=== PATIENT | male | born 1965 | race Two or more races ===

== ENCOUNTER 2019-11-03 18:29 | Emergency (ER) | payer MEDICAID, OTHER ==
[~2019-11-03] VITALS: Ht 170.2 cm; Wt 83.5 kg
[2019-11-03 19:04] VITALS: BP 140/79
== END 2019-11-03 20:53 | disposition home or self-care (01) ==
LOC: ER 18:29
DX: E11.9 Type 2 diabetes mellitus without complications (principal); E78.00 Pure hypercholesterolemia, unspecified; E78.5 Hyperlipidemia, unspecified; Z76.0 Encounter for issue of repeat prescription

== ENCOUNTER → 2019-11-25 | Emergency (ER) | payer OTHER ==
[~2019-11-25] VITALS: Ht 167.6 cm; Wt 83.5 kg
[2019-11-25 22:57] VITALS: BP 128/84
== END | disposition home or self-care (01) ==
LOC: ER 22:32
DX: R51 Headache (principal); E11.9 Type 2 diabetes mellitus without complications; E78.5 Hyperlipidemia, unspecified; Z59.0 Homelessness; Y08.89XA Assault by other specified means, initial encounter; Y93.84 Activity, sleeping; Y92.89 Other specified places as the place of occurrence of the external cause; Y99.8 Other external cause status
CPT/HCPCS: 70450

== ENCOUNTER → 2019-12-11 | Emergency (ER) | payer OTHER ==
[~2019-12-11] VITALS: Ht 167.6 cm; Wt 83.5 kg
[2019-12-11 13:26] LABS: Basophils # (auto) 0.1 10 ^3/uL (0-0.2); Eosinophils # (auto) 0.2 10 ^3/uL (0-0.8); Eosinophils % (auto) 2.8 % (0.0-7.0); Hematocrit 45.3 % (41.0-53.0); Hemoglobin 15.8 g/dL (13.5-17.5); Lymphocytes # (auto) 1.7 10 ^3/uL (0.4-5.4); Lymphocytes % (auto) 25.4 % (10.0-50.0); Mean Corpuscular Hemoglobin 31.1 pg (28.0-32.0); Mean Corpuscular Hgb Conc. 34.8 g/dL (32.0-36.0); Mean Corpuscular Volume 89.2 fL (80.0-100.0); Monocytes # (auto) 0.4 10 ^3/uL (0-1.3); Monocytes % (auto) 6.6 % (0.0-12.0); Neutrophils # (auto) 4.3 10 ^3/uL (1.6-8.6); Neutrophils % (auto) 64.2 % (37.0-80.0); Nucleated Red Blood Cells % 0.1 %; Platelet Count (auto) 236 10^3/uL (140-450); Red Blood Cells 5.08 10^6/uL (4.5-5.90); Red Cell Distribution Width 13.2 % (11.8-14.3); White Blood Cell 6.8 10^3/uL (4.4-10.8)
[2019-12-11 14:27] LABS: Alanine Aminotransferase 38 U/L (16-61); Albumin 3.9 g/dL (3.4-5.0); Alkaline Phosphatase 57 U/L (45-117); Anion Gap 8 (5-15); Aspartate Aminotransferase 21 U/L (15-37); BUN/Creatinine Ratio 19.3; Bilirubin, Total 1.1 mg/dL (0.2-1.0); Blood Urea Nitrogen 17 mg/dL (7-18); Calcium 9.2 mg/dL (8.5-10.1); Carbon Dioxide 23 mmol/L (21-32); Chloride 107 mmol/L (98-107); GFR African American 116 mL/min; GFR Non-African American 96 mL/min; Glucose 119 mg/dL (74-106); Potassium 3.8 mmol/L (3.5-5.1); Sodium 138 mmol/L (136-145); Total Protein 7.6 g/dL (6.4-8.2)
[2019-12-11 15:21] VITALS: BP 142/73
[2019-12-11 16:53] LABS: Urine Bacteria NONE SEEN /hpf (None Seen); Urine Blood TRACE /uL (Negative); Urine Mucus FEW (None Seen); Urine Specific Gravity 1.029 (1.001-1.035); Urine WBC <1 /hpf (0 - 3)
== END | disposition home or self-care (01) ==
LOC: ER 12:38
DX: E11.65 Type 2 diabetes mellitus with hyperglycemia (principal); E78.5 Hyperlipidemia, unspecified
CPT/HCPCS: 36415; 71046; 80053; 81001; 84484; 85025; 93005

== ENCOUNTER 2020-06-13 11:44 | Emergency (ER) | payer OTHER ==
[~2020-06-13] VITALS: Ht 172.7 cm; Wt 88.0 kg
[2020-06-13 12:28] VITALS: BP 146/86
== END 2020-06-13 13:08 | disposition home or self-care (01) ==
LOC: ER 11:44
DX: B86 Scabies (principal); E11.9 Type 2 diabetes mellitus without complications; E78.5 Hyperlipidemia, unspecified

== ENCOUNTER 2020-07-05 03:16 | Emergency (ER) | payer OTHER ==
[~2020-07-05] VITALS: Ht 167.6 cm; Wt 80.7 kg
[2020-07-05 04:35] LABS: Basophils # (auto) 0 10 ^3/uL (0-0.2); Basophils % (auto) 0.5 % (0.0-2.0); Eosinophils # (auto) 0.2 10 ^3/uL (0-0.8); Eosinophils % (auto) 2.1 % (0.0-7.0); Hemoglobin 14.9 g/dL (13.5-17.5); Lymphocytes # (auto) 1.3 10 ^3/uL (0.4-5.4); Lymphocytes % (auto) 16.7 % (10.0-50.0); Mean Corpuscular Hgb Conc. 35.6 g/dL (32.0-36.0); Mean Corpuscular Volume 89.9 fL (80.0-100.0); Monocytes # (auto) 0.5 10 ^3/uL (0-1.3); Monocytes % (auto) 5.9 % (0.0-12.0); Neutrophils # (auto) 5.9 10 ^3/uL (1.6-8.6); Neutrophils % (auto) 74.8 % (37.0-80.0); Nucleated Red Blood Cells % 0.3 %; Platelet Count (auto) 208 10^3/uL (140-450); Red Blood Cells 4.68 10^6/uL (4.5-5.90); Red Cell Distribution Width 13.3 % (11.8-14.3); White Blood Cell 7.9 10^3/uL (4.4-10.8)
[2020-07-05 04:49] LABS: Albumin 3.9 g/dL (3.4-5.0); Anion Gap 7 (5-15); Blood Urea Nitrogen 17 mg/dL (7-18); Calcium 8.6 mg/dL (8.5-10.1); Carbon Dioxide 24 mmol/L (21-32); Chloride 111 mmol/L (98-107); Glucose 107 mg/dL (74-106); Magnesium 2.2 mg/dL (1.6-2.6); Potassium 3.9 mmol/L (3.5-5.1); Sodium 142 mmol/L (136-145)
[2020-07-05 04:51] LABS: INR 1.01 (0.9-1.15); Partial Thromboplastin Time 27.8 sec (23.0-31.2)
[2020-07-05 04:54] LABS: Alanine Aminotransferase 29 U/L (16-61); Alkaline Phosphatase 49 U/L (45-117); Aspartate Aminotransferase 18 U/L (15-37); BUN/Creatinine Ratio 17.9; Bilirubin, Total 1.1 mg/dL (0.2-1.0); GFR African American 106 mL/min; GFR Non-African American 87 mL/min; Total Protein 7.1 g/dL (6.4-8.2)
[2020-07-05 06:00] VITALS: BP 116/78
== END 2020-07-05 06:35 | disposition home or self-care (01) ==
LOC: ER 03:16
DX: R20.2 Paresthesia of skin (principal); R07.9 Chest pain, unspecified; E11.9 Type 2 diabetes mellitus without complications; E78.5 Hyperlipidemia, unspecified; F17.210 Nicotine dependence, cigarettes, uncomplicated; Z76.0 Encounter for issue of repeat prescription; Z59.0 Homelessness
CPT/HCPCS: 36415; 71045; 80053; 83735; 83880; 84484; 85025; 85610; 85730; 93005

== ENCOUNTER 2020-07-10 21:22 | Emergency (ER) | payer OTHER ==
[~2020-07-10] VITALS: Ht 167.6 cm; Wt 82.6 kg
[2020-07-11 00:40] VITALS: BP 143/94
[2020-07-11] MEDS ORDERED: cefTRIAXone SOD 1,000 MG VL IM ONE (01:00)
[2020-07-11] MEDS ORDERED: KETOROLAC TROMETH 60MG/2ML VIAL IM ONE (01:00)
== END 2020-07-11 01:49 | disposition home or self-care (01) ==
LOC: ER 21:22
DX: S90.812A Abrasion, left foot, initial encounter (principal); E11.9 Type 2 diabetes mellitus without complications; E78.5 Hyperlipidemia, unspecified; X58.XXXA Exposure to other specified factors, initial encounter; Y93.89 Activity, other specified; Y92.89 Other specified places as the place of occurrence of the external cause; Y99.8 Other external cause status
CPT/HCPCS: 96372; 99284; J0696; J1885